=== PATIENT | female | born 1980 | race Caucasian/White ===

== ENCOUNTER 2016-10-06 18:12 | Emergency (ER) | payer BC ==
[2016-10-06] MEDS ORDERED: Aspirin Low Dose CHEW TAB* 81 MG PO ONE (20:05)
[2016-10-06 20:56] LABS: Hematocrit 42 % (35-47); Hemoglobin 14.2 g/dl (12.0-16.0); Mean Corpuscular HGB Conc 34 g/dl (31-36); Mean Corpuscular Hemoglobin 30 pg (27-31); Mean Corpuscular Volume 90 fL (80-97); Mean Platelet Volume 9 um3 (7.4-10.4); Red Blood Count 4.72 10^6/ul (4.0-5.4); Red Cell Distribution Width 13 % (10.5-15); White Blood Count 7.5 10^3/ul (3.5-10.8)
--- NOTE | 2016-10-06 21:04 | RAD ---
Indication: Chest pain and shortness of breath walking upstairs. Comparison: None. Technique: Upright AP 2030 hours Report: Accounting for superimposed soft tissues with large body habitus the lungs and pleural spaces are clear. Negative for pneumothorax. The heart, pulmonary vasculature, and mediastinal contours are unremarkable. Unremarkable osseous structures and soft tissue contours. IMPRESSION: No evidence for acute intrathoracic disease.
[2016-10-06 21:12] LABS: ALT 19 U/L (7-52); AST 19 U/L (13-39); Alkaline Phosphatase 41 U/L (34-104); Anion Gap 7 mmol/L (2-11); BUN/Creatinine Ratio 17.6 (8-20); Blood Urea Nitrogen 12 mg/dL (6-24); CO2 Carbon Dioxide 26 mmol/L (22-32); Calcium 9.3 mg/dL (8.6-10.3); Chloride 103 mmol/L (101-111); EGFR African American 126.6 (>60); EGFR Non-African American 98.5 (>60); Globulin 3.4 g/dL (2-4); Glucose 84 mg/dL (70-100); Magnesium 2.1 mg/dL (1.9-2.7); Potassium 3.7 mmol/L (3.5-5.0); Sodium 136 mmol/L (133-145); Total Protein 7.4 g/dL (6.4-8.9)
[2016-10-06] MEDS ORDERED: Ketorolac INJ* 30 MG/ML 1 ML VIAL IV PUSH ONE (21:16)
[2016-10-06 21:35] LABS: TSH (Thyroid Stimulating Horm) 3.58 mcIU/mL (0.34-5.60)
[2016-10-06 21:44] VITALS: BP 119/70
--- NOTE | 2016-10-06 23:02 | ED ---
Aj Mckeon Matthew, scribed for Tavo Gallagher MD on 10/06/16 at 2021 . HPI Chest Pain - HPI Summary HPI Summary: A 36 y/o female presents to the ED with intermittent, mid sternal chest pain since May, which was worse than usual last night and partially improved by morning. The pain was rated 4/10 in severity. Currently, she continues to have mild chest pain. Yesterday, the patient was at her [employer]PERATOR in [place] and they noted an elevated BP. The chest pain improves with rest and deep breaths and worsens with fatigue. Associated symptoms include intermittent leg cramps, which radiates to the toes. She denies calf pain. She was scheduled to see her PCP on 10/09/16; however, they prompted her to present to the ED today. The patient has a Hx of anemia, which has been under control since July. She also has been having SOB, which has been related to her anemia in the past. - History of Current Complaint Chief Complaint: EDChestPainROMI Time Seen by Provider: 10/06/16 20:04 Hx Obtained From: Patient Onset/Duration: Started Days Ago, Atraumatic, Still Present Timing: Intermittent Initial Severity: Moderate Current Severity: Moderate Pain Intensity: 4 Pain Scale Used: 0-10 Numeric Chest Pain Location: Mid Sternal Chest Pain Radiates: No Aggravating Factor(s): Other: - fatigue Alleviating Factor(s): Rest, Other: - deep breaths Associated Signs and Symptoms: Positive: Chest Pain, Other: - intermitetent leg cramps that radiate to the toes. Negative: Calf Pain/Swelling - Allergy/Home Medications Allergies/Adverse Reactions: Allergies Allergy/AdvReac Type Severity Reaction Status Date / Time Codeine Allergy Severe GI Upset Verified 05/25/16 09:53 PMH/Surg Hx/FS Hx/Imm Hx Endocrine/Hematology History: Reports: Hx Anemia History: Reports: Other Problems/Disorders - heavy menses which is controlled tranexamic acid Infectious Disease History: No Infectious Disease History: Denies: Traveled Outside the [place] in Last 30 Days - Family History Known Family History: Positive: Cardiac Disease, Hypertension, Diabetes Negative: Other - negative CA hx in immediate family - Social History Occupation: Employed Full-time - Teacher Alcohol Use: Rare Hx Substance Use: No Substance Use Type: Reports: None Hx Tobacco Use: No Smoking Status (MU): Never Smoked Tobacco Review of Systems Constitutional: Negative Eyes: Negative ENT: Negative Positive: Chest Pain Positive: Shortness Of Breath - Occasional, which has been related to her anemia in the past Gastrointestinal: Negative Genitourinary: Negative Musculoskeletal: Other - intermittent leg cramping that radiates to the toes Neurological: Negative Psychological: Normal All Other Systems Reviewed And Are Negative: Yes Physical Exam Vital Signs On Initial Exam: Initial Vitals Temp Pulse Resp BP Pulse Ox 99.0 F 93 16 139/70 100 10/06/16 18:22 10/06/16 18:22 10/06/16 18:22 10/06/16 18:22 10/06/16 18:22 Diagnostics - Vital Signs Vital Signs Temp Pulse Resp BP Pulse Ox 10/06/16 18:22 99.0 F 93 16 139/70 100 - Laboratory Lab Results: Lab Results 10/06/16 10/06/16 10/06/16 Range/Units 20:42 20:42 20:42 WBC 7.5 (3.5-10.8) 10^3/ul RBC 4.72 (4.0-5.4) 10^6/ul Hgb 14.2 (12.0-16.0) g/dl Hct 42 (35-47) % MCV 90 (80-97) fL MCH 30 (27-31) pg MCHC 34 (31-36) g/dl RDW 13 (10.5-15) % Plt Count 211 (150-450) 10^3/ul MPV 9 (7.4-10.4) um3 Neut % (Auto) 59.3 (38-83) % Lymph % (Auto) 31.5 (25-47) % [place] % (Auto) 7.4 (1-9) % Eos % (Auto) 1.0 (0-6) % Baso % (Auto) 0.8 (0-2) % Absolute Neuts (auto) 4.4 (1.5-7.7) 10^3/ul Absolute Lymphs (auto) 2.4 (1.0-4.8) 10^3/ul Absolute Monos (auto) 0.6 (0-0.8) 10^3/ul Absolute Eos (auto) 0.1 (0-0.6) 10^3/ul Absolute Basos (auto) 0.1 (0-0.2) 10^3/ul Absolute Nucleated RBC 0.01 10^3/ul Nucleated RBC % 0.1 D-Dimer, Quantitative (Less Than 230) ng/mL Sodium 136 (133-145) mmol/L Potassium 3.7 (3.5-5.0) mmol/L Chloride 103 (101-111) mmol/L Carbon Dioxide 26 (22-32) mmol/L Anion Gap 7 (2-11) mmol/L BUN 12 (6-24) mg/dL Creatinine 0.68 (0.51-0.95) mg/dL Est GFR ( Amer) 126.6 (>60) Est GFR (Non-Af Amer) 98.5 (>60) BUN/Creatinine Ratio 17.6 (8-20) Glucose 84 (70-100) mg/dL Lactic Acid 1.0 (0.5-2.0) mmol/L Calcium 9.3 (8.6-10.3) mg/dL Magnesium 2.1 (1.9-2.7) mg/dL Total Bilirubin 0.40 (0.2-1.0) mg/dL AST 19 (13-39) U/L ALT 19 (7-52) U/L Alkaline Phosphatase 41 (34-104) U/L CK-MB (CK-2) 1.1 (0.6-6.3) ng/mL Troponin I 0.00 (<0.04) ng/mL Total Protein 7.4 (6.4-8.9) g/dL Albumin 4.0 (3.2-5.2) g/dL Globulin 3.4 (2-4) g/dL Albumin/Globulin Ratio 1.2 (1-3) TSH 3.58 (0.34-5.60) mcIU/mL Beta HCG, Quant < 0.60 mIU/mL 10/06/16 Range/Units 20:42 WBC (3.5-10.8) 10^3/ul RBC (4.0-5.4) 10^6/ul Hgb (12.0-16.0) g/dl Hct (35-47) % MCV (80-97) fL MCH (27-31) pg MCHC (31-36) g/dl RDW (10.5-15) % Plt Count (150-450) 10^3/ul MPV (7.4-10.4) um3 Neut % (Auto) (38-83) % Lymph % (Auto) (25-47) % [place] % (Auto) (1-9) % Eos % (Auto) (0-6) % Baso % (Auto) (0-2) % Absolute Neuts (auto) (1.5-7.7) 10^3/ul Absolute Lymphs (auto) (1.0-4.8) 10^3/ul Absolute Monos (auto) (0-0.8) 10^3/ul Absolute Eos (auto) (0-0.6) 10^3/ul Absolute Basos (auto) (0-0.2) 10^3/ul Absolute Nucleated RBC 10^3/ul Nucleated RBC % D-Dimer, Quantitative < 200 (Less Than 230) ng/mL Sodium (133-145) mmol/L Potassium (3.5-5.0) mmol/L Chloride (101-111) mmol/L Carbon Dioxide (22-32) mmol/L Anion Gap (2-11) mmol/L BUN (6-24) mg/dL Creatinine (0.51-0.95) mg/dL Est GFR ( Amer) (>60) Est GFR (Non-Af Amer) (>60) BUN/Creatinine Ratio (8-20) Glucose (70-100) mg/dL Lactic Acid (0.5-2.0) mmol/L Calcium (8.6-10.3) mg/dL Magnesium (1.9-2.7) mg/dL Total Bilirubin (0.2-1.0) mg/dL AST (13-39) U/L ALT (7-52) U/L Alkaline Phosphatase (34-104) U/L CK-MB (CK-2) (0.6-6.3) ng/mL Troponin I (<0.04) ng/mL Total Protein (6.4-8.9) g/dL Albumin (3.2-5.2) g/dL Globulin (2-4) g/dL Albumin/Globulin Ratio (1-3) TSH (0.34-5.60) mcIU/mL Beta HCG, Quant mIU/mL Result Diagrams: 10/06/16 20:42 10/06/16 20:42 Lab Statement: Any lab studies that have been ordered have been reviewed, and results considered in the medical decision making process. - Radiology CXR Xray Interpretation: No Acute Changes - IMPRESSION: No evidence for acute intrathoracic disease. Radiology Interpretation Completed By: Radiologist - EKG 18:16 Cardiac Rate: NL - 89 bpm EKG Rhythm: Sinus Rhythm EKG Interpretation: No ST elevation Chest Pain Course/Dx - Course Assessment/Plan: A 36 y/o female presents to the ED with a CC of chest pain. The patient has been having this chest pain since May intermittently. She denies SOB, palpitations, nausea, and vomiting. Test results WNL. Troponin 0.00. D-Dimer less than 200. In the ED course, the patient was given Toradol and the symptoms alleviated. She will be discharged home with follow-up from her PCP. She is hemodynamically stable and A&Ox3. Patient reports that all symptoms have resolved. Patient has been observed in the ER for approximately 3 hours. Because the patient has no significant comorbidities and no family history of cardiovascular disease the patient will be discharged home with follow up of PMD. I discussed all the findings and test results with the patient. Patient was instructed to return to the emergency room immediately if any of the symptoms return or worsens. Patient understands and agrees. Plan of care was discussed with the patient and patient understands and agrees. All questions were answered at patient satisfaction. There were no further complaints or concerns. PE before discharge: CVS: S1 and S2 present. No murmurs appreciated. Abdominal exam before discharge: Soft, non-tender. No signs of distention. No rebound no guarding, and no masses palpated. Bowel sounds are normal. Patient is alert and oriented x 3. Patient is hemodynamically stable. - Chest Pain Differential Diagnosis/HQI/PQRI: Angina, Chest Wall, GI Disease, Pulmonary Embolism - Diagnoses Provider Diagnoses: Chest pain Discharge - Discharge Plan Condition: Stable Disposition: HOME Patient Education Materials: Chest Pain (ED) Referrals: Maria G Vallejo MD [Primary Care Provider] - 2 Days Additional Instructions: Please follow-up with your primary care physician in two days for further management. The documentation as recorded by the Aj estrada Matthew accurately reflects the service I personally performed and the decisions made by me, Tavo Gallagher MD.
== END 2016-10-06 21:53 | disposition home or self-care (01) ==
LOC: ED 18:12
DX: R07.9 Chest pain, unspecified (principal); R06.02 Shortness of breath
CPT/HCPCS: 36415; 71010; 80053; 82553; 83605; 83735; 84443; 84484; 84702; 85025; 85379; 93005; 99283; A9270-GY

== ENCOUNTER 2018-10-20 16:33 | Observation (INO) | payer BC ==
[2018-10-20] MEDS ORDERED: Diazepam TAB(*) 5 MG PO ONE (16:52)
[2018-10-20] MEDS ORDERED: Ketorolac TAB * 10 MG TAB PO ONE (16:52)
[2018-10-20] MEDS ORDERED: HYDROmorphone INJ* 2 MG/ML CARPUJECT SYRINGE IM ONE ×2 (18:46→20:31)
[2018-10-20] MEDS ORDERED: Ondansetron ODT TAB* 4 MG PO ONE (18:49)
[2018-10-20] MEDS ORDERED: HYDROmorphone INJ1* 1 MG/ML SYRINGE SUBCUT ONE ×2 (19:00→22:00)
--- NOTE | 2018-10-20 19:30 | ED ---
Back Pain - HPI Summary HPI Summary: Patient complains of sudden onset left lower back pain after helping her child take a shower. States history of same once 12 years ago. Denies IV drug use, radiation of pain into her bilateral legs, incontinence, urinary retention, abdominal pain, change in urine, change in BM, fever. Patient took a Percocet 5 /325 and ibuprofen 600 and 11 AM without any relief. Medical history is none. - History of Current Complaint Chief Complaint: EDBackInjuryPain Stated Complaint: BACK PAIN Time Seen by Provider: 10/20/18 16:46 Hx Obtained From: Patient Onset/Duration: Sudden Onset Onset/Duration: Started Hours Ago Timing: Constant Severity Initially: Moderate Severity Currently: Moderate Pain Intensity: 5 Pain Scale Used: 0-10 Numeric Character: Sharp Aggravating Symptom(s): Movement Alleviating Symptom(s): Rest, Position Associated Signs And Symptoms: Positive: Negative - Allergies/Home Medications Allergies/Adverse Reactions: Allergies Allergy/AdvReac Type Severity Reaction Status Date / Time codeine Allergy GI Upset Verified 10/20/18 16:48 Home Medications: Home Medications Ibuprofen [Advil] 400 - 600 mg PO Q6H PRN 10/20/18 [History Confirmed 10/20/18] oxyCODONE/Acetam5/325MG PREPAK [Percocet 5/325 TAB*] 1 tab PO Q6H PRN 10/20/18 [ History Confirmed 10/20/18] PMH/Surg Hx/FS Hx/Imm Hx Endocrine/Hematology History: Reports: Hx Anemia Cardiovascular History: Denies: Hx Cardiac Arrest History: Reports: Other Problems/Disorders - heavy menses which is controlled tranexamic acid Sensory History: Reports: Hx Eye Prosthesis EENT History: Reports: Hx Deafness Neurological History: Reports: Hx Developmental Delay Psychiatric History: Reports: Hx Autism Infectious Disease History: No Infectious Disease History: Denies: Traveled Outside the [place] in Last 30 Days - Family History Known Family History: Positive: Cardiac Disease, Hypertension, Diabetes Negative: Other - negative CA hx in immediate family - Social History Alcohol Use: Occasionally Hx Substance Use: No Substance Use Type: Reports: None Hx Tobacco Use: No Smoking Status (MU): Never Smoked Tobacco Review of Systems Constitutional: Negative Eyes: Negative ENT: Negative Cardiovascular: Negative Respiratory: Negative Gastrointestinal: Negative Genitourinary: Negative Musculoskeletal: Other Skin: Negative Neurological: Negative Psychological: Normal All Other Systems Reviewed And Are Negative: Yes Physical Exam - Summary Physical Exam Summary: No ecchymosis, erythema, swelling, deformity, masses noted to back. Tenderness to palpation along paraspinal muscles of the L-spine on left side. No tenderness to palpation along the spine itself. Patient moves bilateral lower extremities. PMS intact distally. Abdominal exam unremarkable. Triage Information Reviewed: Yes Vital Signs On Initial Exam: Initial Vitals Temp Pulse Resp BP Pulse Ox 97.7 F 86 17 117/70 98 10/20/18 16:44 10/20/18 16:44 10/20/18 16:44 10/20/18 16:44 10/20/18 16:44 Vital Signs Reviewed: Yes Appearance: Positive: Well-Appearing Skin: Positive: Warm Head/Face: Positive: Normal Head/Face Inspection Eyes: Positive: Normal Neck: Positive: Supple Respiratory/Lung Sounds: Positive: Clear to Auscultation Cardiovascular: Positive: Normal Abdomen Description: Positive: Nontender Musculoskeletal: Positive: Normal Neurological: Positive: Normal Psychiatric: Positive: Normal AVPU Assessment: Alert - Fabiano Coma Scale Best Eye Response: 4 - Spontaneous Best Motor Response: 6 - Obeys Commands Best Verbal Response: 5 - Oriented Coma Scale Total: 15 Diagnostics - Vital Signs Vital Signs Temp Pulse Resp BP Pulse Ox 10/20/18 19:08 17 10/20/18 17:21 22 10/20/18 16:44 97.7 F 86 17 117/70 98 - Laboratory Result Diagrams: 10/20/18 23:39 10/20/18 23:39 Lab Statement: Any lab studies that have been ordered have been reviewed, and results considered in the medical decision making process. Back Pain Course/Dx - Course Course Of Treatment: Patient complains of sudden onset left lower back pain after helping her child take a shower. States history of same once 12 years ago. Denies IV drug use, radiation of pain into her bilateral legs, incontinence, urinary retention, abdominal pain, change in urine, change in BM, fever. Patient took a Percocet 5/325 and ibuprofen 600 and 11 AM without any relief. Medical history is none. Physical exam:No ecchymosis, erythema, swelling, deformity, masses noted to back. Tenderness to palpation along paraspinal muscles of the L-spine on left side. No tenderness to palpation along the spine itself. Patient moves bilateral lower extremities. PMS intact distally. Abdominal exam unremarkable. Vital signs within normal limits. Patient's symptoms improved moderately with Valium 5 mg and Toradol 10 mg by mouth, the patient could not move from bed without yelling in pain. Patient also received Dilaudid 1 mg subcutaneous x 2. The patient stated symptoms improved with Dilaudid patient screamed in pain every time there was an attempt to get up from the bed. Will be admitted to hospitalist for observation. - Diagnoses Provider Diagnoses: Muscle spasm Discharge - Sign-Out/Discharge Documenting (check all that apply): Patient Departure - Discharge Plan Condition: Stable Disposition: HOME - Billing Disposition and Condition Condition: STABLE Disposition: Home
[2018-10-20] MEDS ORDERED: HYDROmorphone INJ* 1 MG/ML CARPUJECT SYRINGE SUBCUT ONE (20:33)
[2018-10-20] MEDS ORDERED: HYDROmorphone INJ1* 1 MG/ML SYRINGE IM ONE (22:00)
--- NOTE | 2018-10-20 23:48 | ADMNOTE ---
Subjective Date of Service: 10/20/18 Interval History: 38 year old Female with no significant past medical history who presents to the emergency room because of back pain. Today morning, she started to have back spasm when she was giving a bath to her children. The back spasm resolved, shortly thereafter she took a shower, and then experienced 10/10 back spasm at the left side. The pain was so severe that she laid on the ground. She tried to get up, but was unable to get up X 6 hours. Then she called 911 and was brought to the ER. She does not have any urinary or rectal incontinence, no fever, no trauma, no heavy lifting or shoveling of the snow. In the ER was given pain medications, plan was to send her home, but patient is unable to move due to pain, and then the hospitalist service was called. Family History: Unchanged from Admission - Mother: Rheumatoid arthritis, back issues, Hypertension, Hyperlipidemia. 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, is a teacher, No smoking, occasional alcohol use Past Medical History: Unchanged from Admission - No chronic medical problems, had 2 and uterine ablation Review of Systems - Review of Systems Constitutional Symptoms: Negative: Weight Loss, Fever, Unexplained Falls Dermatology: Negative: Rash, Skin Lesions HEENT: Negative: Change in Hearing, Tinnitus, Sinus Problem Eyes: Negative: Change in Vision, Double Vision, Eye Pain Thyroid: Negative: Cold Intolerance, Heat Intolerance Pulmonary: Negative: Cough, Sputum, Respiratory Distress, Shortness of Breath Cardiology: Negative: Chest Pain, Shortness of Breath, Palpitations Gastroenterology: Negative: Abdominal Pain, Nausea, Vomiting, Constipation Genital - Urinary: Negative: Dysuria, Polyuria Musculoskeletal: Positive: Low Back Pain Endocrinology: Positive: Normal Neurology: Negative: Headache, Change in Vision Psychiatry: Negative: Depression, Anxiety, Depressed Mood Objective Vital Signs - 8 hr 10/20/18 10/20/18 10/20/18 16:44 17:21 19:08 Temperature 97.7 F Pulse Rate 86 Respiratory 17 22 17 Rate Blood Pressure 117/70 (mmHg) O2 Sat by Pulse 98 Oximetry 10/20/18 21:23 Temperature Pulse Rate Respiratory 16 Rate Blood Pressure (mmHg) O2 Sat by Pulse Oximetry Oxygen Devices in Use Now: None Appearance: Young female, lying in bed, tearful. not in distress Eyes: PERRLA - No nystagmus Ears/Nose/Mouth/Throat: - - oral mucosa is dry. Respiratory: Clear to Auscultation Cardiovascular: NL Sounds; No Murmurs; No JVD, RRR Extremities: No Edema, - - Having left paraspinal tenderness, able to lift her legs off the floor, sensation at the legs/feet intact. Skin: No Rash or Ulcers Neurological: Alert and Oriented x 3 Result Diagrams: 10/20/18 23:39 Assess/Plan/Problems-Billing Assessment: 38 year old Female presents with back pain. - Patient Problems (1) Back pain Current Visit: Yes Status: Acute Code(s): M54.9 - DORSALGIA, UNSPECIFIED SNOMED Code(s): 673186168 Comment: Left paraspinal tenderness w/ back pain: likely muscle spasm, will start PRN flexeril. apply heating pack. no incontinence, sensation and movement of lower extremities intact. Was on the ground for several hours, CK was ordered- results pending. (2) DVT prophylaxis Current Visit: Yes Status: Acute Code(s): KPH2479 - SNOMED Code(s): 778753837 Comment: SCD Medications/Allergies Medications: Home Medications Medication Instructions Recorded Confirmed Type Diazepam TAB(*) [Valium TAB(*)] 5 mg PO TID PRN 3 Days #76 tab MDD 10/20/18 Rx 3 tabs Ibuprofen [Advil] 400 - 600 mg PO Q6H PRN 10/20/18 10/20/18 History oxyCODONE/Acetam5/325MG PREPAK 1 tab PO Q6H PRN 10/20/18 10/20/18 History [Percocet 5/325 TAB*] Allergies/Adverse Reactions: Allergies Allergy/AdvReac Type Severity Reaction Status Date / Time codeine Allergy GI Upset Verified 10/20/18 16:48
[2018-10-20 23:49] LABS: ABS Basophils 0 10^3/ul (0-0.2); ABS Eosinophils 0 10^3/ul (0-0.6); ABS Lymphocytes 2.2 10^3/ul (1.0-4.8); ABS Monocytes 0.5 10^3/ul (0-0.8); ABS Neutrophils 3.4 10^3/ul (1.5-7.7); ABS Nucleated RBC 0 10^3/ul; Eosinophil % 0.6 %; Hematocrit 45 % (35-47); Hemoglobin 15.3 g/dl (12.0-16.0); Lymphocyte % 35.3 %; Mean Corpuscular HGB Conc 34 g/dl (31-36); Mean Corpuscular Hemoglobin 31 pg (27-31); Mean Corpuscular Volume 92 fL (80-97); Mean Platelet Volume 9.8 fL (7.4-10.4); Nucleated Red Blood Cells % 0.1; Platelet Count 161 10^3/ul (150-450); Red Blood Count 4.96 10^6/ul (4.00-5.40); Red Cell Distribution Width 13 % (10.5-15); White Blood Count 6.2 10^3/ul (3.5-10.8)
[2018-10-20] MEDS ORDERED: Acetaminophen TAB* 325 MG PO PRN (23:51)
[2018-10-20] MEDS ORDERED: Ondansetron INJ* 2 MG/ML VIAL IV PRN (23:51)
[2018-10-21 00:04] LABS: Anion Gap 9 mmol/L (2-11); BUN/Creatinine Ratio 18.8 (8-20); Blood Urea Nitrogen 12 mg/dL (6-24); CO2 Carbon Dioxide 23 mmol/L (22-32); Calcium 9.3 mg/dL (8.6-10.3); Chloride 105 mmol/L (101-111); Creatine Kinase 88 U/L (10-223); EGFR Non-African American 104.4 (>60); Glucose 93 mg/dL (70-100); Potassium 3.3 mmol/L (3.5-5.0); Sodium 137 mmol/L (135-145)
[2018-10-21] MEDS: Cyclobenzaprine TAB* 10 MG PO PRN ×2 (00:17→17:35)
[2018-10-21 00:20] LABS: HCG Pregnancy < 0.60 mIU/mL
[2018-10-21] MEDS ORDERED: Potassium Chlor TAB* 20 MEQ TAB.ER PO ONE (01:27)
[2018-10-21 01:58] LABS: Urine Appearance Clear; Urine Color Yellow
[2018-10-21 01:59] LABS: Urine Ketones Negative (Negative); Urine Protein 1+(30 mg/dL) (Negative); Urine Urobilinogen Negative (Negative)
[2018-10-21 02:00] LABS: Urine Blood Negative (Negative); Urine Nitrite Negative (Negative)
[2018-10-21 02:01] LABS: Urine Bilirubin Negative (Negative); Urine Glucose Negative (Negative)
[2018-10-21 02:03] LABS: Urine Bacteria 1+ (Absent); Urine Red Blood Cell Trace(0-2/hpf) (Absent); Urine White Blood Cell 1+(6-10/hpf) (Absent)
[2018-10-21] MEDS: NS 0.9% 1000 ML* 1,000 ML IV SCH ×2 (02:30→14:09)
[2018-10-21] MEDS: oxyCODONE/Acetamin 5/325 MG* TAB PO PRN ×2 (02:30→08:16)
--- NOTE | 2018-10-21 03:08 | PN ---
Hospitalist Progress Note Date of Service: 10/21/18 CT shows left sided non-obstructing kidney stone will start flomax continue IV fluid. Patient was having urinary retention, straight cath was done. there after CT abd /plevix and ct lumbar and thoracic spine were ordered/.
[2018-10-21] MEDS: Tamsulosin CAP* 0.4 MG PO SCH (08:16)
[2018-10-21] MEDS: HYDROmorphone INJ1* 1 MG/ML SYRINGE IV SLOW PU PRN ×3 (09:30→19:55)
--- NOTE | 2018-10-21 14:31 | PN ---
Subjective Date of Service: 10/21/18 Interval History: Patient has 4/10 Lt sided back pain at rest, not radiating. Has 8/10 pain w/ movement. Yesterday pain was 10/10, could not breath. Aware of kidney stone, never had this prior. No injury to back. Family History: Unchanged from Admission - Mother: Rheumatoid arthritis, back issues, Hypertension, Hyperlipidemia. 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 , is a teacher, 2 sons Past Medical History: Unchanged from Admission - No chronic medical problems, had 2 and uterine ablation Objective Active Medications: Acetaminophen (Tylenol Tab*) 650 mg PO Q6H PRN PRN Reason: PAIN Cyclobenzaprine HCl (Flexeril Tab*) 5 mg PO TID PRN PRN Reason: Back spasm Last Admin: 10/21/18 00:17 Dose: 5 mg Hydromorphone HCl (Dilaudid Inj1s*) 1 mg IV SLOW PU Q3H PRN PRN Reason: PAIN Last Admin: 10/21/18 14:06 Dose: 1 mg Sodium Chloride (Ns 0.9% 1000 Ml*) 1,000 mls @ 100 mls/hr IV PER RATE [facility] Last Admin: 10/21/18 14:09 Dose: 100 mls/hr Ondansetron HCl (Zofran Inj*) 4 mg IV Q6H PRN PRN Reason: NAUSEA Oxycodone/Acetaminophen (Percocet 5/325 Tab*) 1 tab PO Q6H PRN PRN Reason: PAIN Last Admin: 10/21/18 08:16 Dose: 1 tab Tamsulosin HCl (Flomax Cap*) 0.4 mg PO DAILY [facility] Last Admin: 10/21/18 08:16 Dose: 0.4 mg Vital Signs - 8 hr 10/21/18 10/21/18 10/21/18 07:21 08:15 08:16 Temperature 36.8 C Pulse Rate 79 Respiratory 17 16 16 Rate Blood Pressure 109/55 (mmHg) O2 Sat by Pulse 98 Oximetry 10/21/18 10/21/18 10/21/18 09:30 10:35 11:05 Temperature 37.0 C Pulse Rate 74 Respiratory 16 14 16 Rate Blood Pressure 96/46 (mmHg) O2 Sat by Pulse 97 Oximetry 10/21/18 14:06 Temperature Pulse Rate Respiratory 16 Rate Blood Pressure (mmHg) O2 Sat by Pulse Oximetry Oxygen Devices in Use Now: None Appearance: tearful Eyes: No Scleral Icterus Ears/Nose/Mouth/Throat: Clear Oropharnyx Neck: No Thyroid Enlargement, Masses Respiratory: Symmetrical Chest Expansion and Respiratory Effort, Clear to Auscultation Cardiovascular: NL Sounds; No Murmurs; No JVD Abdominal: NL Sounds; No Tenderness; No Distention Lymphatic: No Cervical Adenopathy Neurological: - - motor 5/5 LE, negative SLR Lines/Tubes/Other Access: Clean, Dry and Intact Peripheral IV Nutrition: Taking PO's Result Diagrams: 10/20/18 23:39 10/20/18 23:39 Diagnostic Imaging: MRI spine LS: spondylosis, no disc herniation or nerve compression Assess/Plan/Problems-Billing Assessment: 38 year old Female presents with intractable back pain. - Patient Problems (1) Back pain Current Visit: Yes Status: Acute Code(s): M54.9 - DORSALGIA, UNSPECIFIED SNOMED Code(s): 875697510 Comment: - pain control improved, PT to see - No worrisome neuro signs, no incontinence, sensation and movement of lower extremities intact. (2) Nephrolithiasis Current Visit: Yes Status: Acute Priority: Low Code(s): N20.0 - CALCULUS OF KIDNEY SNOMED Code(s): 05649956 Comment: - Patient advised renal stone not in ureter not causing this degree of pain - advised hydration, citrus products. Status and Disposition: likely discharge tomorrow
[2018-10-22] MEDS: NS 0.9% 1000 ML* 1,000 ML IV SCH ×2 (00:24→08:53)
[2018-10-22] MEDS: oxyCODONE/Acetamin 5/325 MG* TAB PO PRN ×3 (03:53→17:26)
[2018-10-22 05:50] LABS: BUN/Creatinine Ratio 16.7 (8-20); Calcium 8.6 mg/dL (8.6-10.3); EGFR Non-African American 112.5 (>60); Potassium 3.8 mmol/L (3.5-5.0)
[2018-10-22] MEDS: Cyclobenzaprine TAB* 10 MG PO PRN (08:51)
[2018-10-22] MEDS: Tamsulosin CAP* 0.4 MG PO SCH (08:58)
[2018-10-22] MEDS ORDERED: Docusate CAP* 100 MG PO PRN (11:52)
[2018-10-22] MEDS ORDERED: Cyclobenzaprine TAB* 10 MG PO PRN (11:52)
[2018-10-22] MEDS: Gabapentin CAP(*) 100 MG PO SCH ×2 (13:04→17:25)
[2018-10-22 17:46] VITALS: BP 110/51
--- NOTE | 2018-10-22 22:13 | DS ---
CC: Dr. Maria G Vallejo, Family Medicine * DISCHARGE SUMMARY: DATE OF ADMISSION: 10/20/18 DATE OF DISCHARGE: 10/22/18 PRIMARY DIAGNOSIS: Left-sided musculoskeletal low back pain, possible radicular irritation. SECONDARY DIAGNOSIS: Nephrolithiasis with kidney stones seen in the collecting system of the left kidney not obstructing the ureter. MEDICATIONS ON DISCHARGE: 1. Acetaminophen 650 mg p.o. q.6 hours p.r.n. pain. 2. Cyclobenzaprine 10 mg p.o. t.i.d. p.r.n. spasm. 3. Colace 100 mg p.o. b.i.d. 4. Gabapentin 100 mg p.o. 4 times daily for 3 days and then increase to 200 mg p.o. 4 times daily. 5. Oxycodone/acetaminophen 5/325, 1 tab p.o. q.6 hours p.r.n. pain. 6. Ibuprofen 600 mg p.o. t.i.d. with food. HOSPITAL COURSE: Ms. Barroso is an otherwise healthy 38-year-old woman who was admitted with intractable back pain. At first, when a kidney stone was seen on CT, there was a concern that her pain was due to nephrolithiasis. However, this is a nonobstructing kidney stone, which can cause some pain but not to this degree. The patient was lying on the floor with 10/10 pain, could not move initially. She was admitted to the hospital for pain control and further workup. Thoracic spine CT on 10/21/18 showed multilevel thoracic spondylopathy with no foraminal narrowing or canal stenosis. The lumbosacral spine CT also showed bilateral sacroiliitis. No other serious findings. The MRI of the lumbar spine shows multilevel spondylosis and no central canal stenosis or foraminal stenosis. The patient was treated with IV opiates and muscle relaxants. She was seen by Physical Therapy and she was able to walk with some recurring intermittent severe discomfort. She improved enough to be able to ambulate to the bathroom without assistance. She was eating well. She has not had a bowel movement during this hospitalization and she was started on Colace due to her opiate use. Due to the radicular nature of the pain spreading into her left flank area, the patient was started on gabapentin on the day of discharge, which she tolerated well but at a low dose. This should be titrated up as an outpatient. Tests pending upon discharge: We have added on a HLA-B27 test to the blood we have on vial here. The patient has multilevel spondylosis at age 38, may have ankylosing spondylitis. This should be followed as an outpatient. DISPOSITION: To home with her and children. DIET: Should be as tolerated. 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 The patient is to see Dr. Vallejo within 1 week for followup. [id number]/[facility] #: [id number] [facility]
== END 2018-10-22 17:50 | disposition home or self-care (01) ==
LOC: ED 16:33 → SSU 23:48
PROVIDERS: ADMIT Internal Medicine; ATTEND Internal Medicine
DX: N20.0 Calculus of kidney (principal); M54.5 Low back pain; M54.9 Dorsalgia, unspecified; M46.1 Sacroiliitis, not elsewhere classified; M62.838 Other muscle spasm
CPT/HCPCS: 36415; 72128; 72131; 72148; 74176; 80048; 81003; 81015; 82550; 84702; 85025; 85379; 86812; 87086; 96372; 96374; 99284; A9270-GY; G0378; J1170; J2405

== ENCOUNTER 2018-10-23 19:59 | Emergency (ER) | payer BC ==
[2018-10-23 20:40] VITALS: BP 132/69
--- NOTE | 2018-10-23 20:41 | UC ---
Complaint Female HPI - HPI Summary HPI Summary: 38 yo female presents with burning during urination that began earlier today. She tells me that she was discharged from the hospital yesterday after being admitted for 2 days for back spasms and intractable pain. At one point she had urinary retention and required a urinary catheter. Earlier today she developed burning with urination and frequency. She is still having pain, but is much better than when she was admitted. Denies fever or hematuria. - History Of Current Complaint Chief Complaint: UCGU Stated Complaint: BURNING URINATION Time Seen by Provider: 10/23/18 20:36 Hx Obtained From: Patient Hx Last Menstrual Period: [id number] Onset/Duration: Sudden Onset Timing: Constant Severity Initially: Moderate Severity Currently: Moderate Pain Intensity: 4 Pain Scale Used: 0-10 Numeric - Allergies/Home Medications Allergies/Adverse Reactions: Allergies Allergy/AdvReac Type Severity Reaction Status Date / Time codeine Allergy GI Upset Verified 10/23/18 20:40 Home Medications: Home Medications Diazepam TAB(*) [Valium TAB(*)] 5 mg PO TID PRN 10/23/18 [History Confirmed ] PMH/Surg Hx/FS Hx/Imm Hx - Additional Past Medical History Additional PMH: None - Surgical History Surgical History: Yes Surgery Procedure, Year, and Place: TUBAL LIGATION. 2 C-sections. ablation. WISDOM TEETH - Family History Known Family History: Positive: Cardiac Disease, Hypertension, Diabetes Negative: Other - negative CA hx in immediate family - Social History Lives: With Family Alcohol Use: Rare Substance Use Type: None Smoking Status (MU): Never Smoked Tobacco - Immunization History Most Recent Influenza Vaccination: july 2018 Most Recent Pneumonia Vaccination: n/a Review of Systems All Other Systems Reviewed And Are Negative: Yes Constitutional: Positive: Negative Skin: Positive: Negative Respiratory: Positive: Negative Cardiovascular: Positive: Negative Genitourinary: Positive: Dysuria, Urgency Neurological: Positive: Negative Psychological: Positive: Negative Physical Exam - Summary Physical Exam Summary: GENERAL: NAD. WDWN. No pain distress. SKIN: No rashes, sores, lesions, or open wounds. NECK: Supple. Nontender. No lymphadenopathy. CHEST: CTAB. No r/r/w. No accessory muscle use. Breathing comfortably and in no distress. CV: RRR. Without m/r/g. Pulses intact. Cap refill <2seconds ABDOMEN: Soft. NTTP. No distention or guarding. No CVA tenderness. Bowel sounds present NEURO: Alert. PSYCH: Age appropriate behavior. Triage Information Reviewed: Yes Vital Signs: Initial Vital Signs Temp 99.0 F 10/23/18 20:33 Pulse 90 10/23/18 20:33 Resp 16 10/23/18 20:33 BP 132/69 10/23/18 20:33 Pulse Ox 99 10/23/18 20:33 Laboratory Tests 10/23/18 20:58 POC Urine Color Yellow POC Urine Clarity Cloudy POC Urine pH 6.0 POC Ur Specif Minerva 1.020 POC Urine Protein Negative POC Ur Glucose (UA) Negative POC Urine Ketones Negative POC Urine Blood 2+ A POC Urine Nitrite Negative POC Urine Bilirubin Negative POC Urine Urobilinogen 0.2 POC U Leukocyte Esteras 2+ A Vital Signs Reviewed: Yes Complaint Female Dx - Course Course Of Treatment: UA with sign of infection. Given her recent hospitalization and cath - will treat with Cipro. Keep f/u on sunday with PCP for a recheck. - Differential Dx/Diagnosis Provider Diagnosis: UTI (urinary tract infection) Discharge - Sign-Out/Discharge Documenting (check all that apply): Patient Departure All imaging exams completed and their final reports reviewed: No - Discharge Plan Condition: Stable Disposition: HOME Prescriptions: Ciprofloxacin TAB* [Cipro 500 MG TAB*] 500 mg PO BID #10 tab Patient Education Materials: Urinary Tract Infection in Women (DC) Referrals: Maria G Vallejo MD [Primary Care Provider] - Additional Instructions: If you develop a fever, shortness of breath, chest pain, new or worsening symptoms - please call your PCP or go to the ED. Please keep your follow up with Dr. Vallejo for sunday for a recheck of your symptoms - Billing Disposition and Condition Condition: STABLE Disposition: Home - Attestation Statements Provider Attestation: Per institutional requirements, I have reviewed the chart, however, I was not consulted specifically or made aware of this patient by the midlevel provider. I did not personally evaluate, interact with , or disposition this patient.
[2018-10-23] MEDS ORDERED: Dexamethasone TAB* 4 MG PO ONE (21:05)
[2018-10-23] MEDS ORDERED: Albuterol HFA INHALER* 8 gm MDI INH ONE (21:05)
[2018-10-23] MEDS ORDERED: Ciprofloxacin TAB* 500 MG PO ONE (21:17)
--- NOTE | 2018-10-24 20:01 | ED ---
Progress - Progress Note Progress Note: No x-rays ordered on October 23, 2018 therefore there are no discrepancies Course/Dx - Course Course Of Treatment: UA with sign of infection. Given her recent hospitalization and cath - will treat with Cipro. Keep f/u on sunday with PCP for a recheck. - Diagnoses Provider Diagnoses: UTI (urinary tract infection) Discharge - Sign-Out/Discharge Documenting (check all that apply): Patient Departure All imaging exams completed and their final reports reviewed: No Studies - Discharge Plan Condition: Stable Disposition: HOME Prescriptions: Ciprofloxacin TAB* [Cipro 500 MG TAB*] 500 mg PO BID #10 tab Patient Education Materials: Urinary Tract Infection in Women (DC) Referrals: Maria G Vallejo MD [Primary Care Provider] - Additional Instructions: If you develop a fever, shortness of breath, chest pain, new or worsening symptoms - please call your PCP or go to the ED. Please keep your follow up with Dr. Vallejo for sunday for a recheck of your symptoms - Billing Disposition and Condition Condition: STABLE Disposition: Home
== END 2018-10-23 21:37 | disposition home or self-care (01) ==
LOC: UCEAST 19:59
DX: N39.0 Urinary tract infection, site not specified (principal); Z88.5 Allergy status to narcotic agent
CPT/HCPCS: 81003; 87077; 87086; 87186; 99212; A9270-GY; G0463

== ENCOUNTER 2019-06-11 13:06 | Emergency (ER) | payer BC ==
[2019-06-11 13:22] VITALS: BP 128/77
--- NOTE | 2019-06-11 18:11 | UC ---
Hand/Wrist HPI - HPI Summary HPI Summary: SUDDEN ONSET YESTERDAY OF LEFT INDEX FINGER SWELLING AND PAIN. DENIES ANY INJURY. - History Of Current Complaint Chief Complaint: UCUpperExtremity Stated Complaint: SWOLLEN FINGER Time Seen by Provider: 06/11/19 15:44 Hx Obtained From: Patient Hx Last Menstrual Period: 05/21/19 Onset/Duration: Sudden Onset, Lasting Days, Still Present Severity Initially: Moderate Severity Currently: Moderate Pain Intensity: 8 Pain Scale Used: 0-10 Numeric Character Of Pain: Sharp Aggravating Factor(s): Movement Alleviating Factor(s): Rest Associated Signs And Symptoms: Positive: Swelling, Redness Related History: Dominant Hand Right - Allergies/Home Medications Allergies/Adverse Reactions: Allergies Allergy/AdvReac Type Severity Reaction Status Date / Time codeine Allergy GI Upset Verified 06/11/19 13:23 PMH/Surg Hx/FS Hx/Imm Hx GI/ History: Kidney Stones - Surgical History Surgical History: Yes Surgery Procedure, Year, and Place: TUBAL LIGATION. 2 C-sections. ablation. WISDOM TEETH - Family History Known Family History: Positive: Cardiac Disease, Hypertension, Diabetes Negative: Other - negative CA hx in immediate family - Social History Alcohol Use: Rare Substance Use Type: None Smoking Status (MU): Never Smoked Tobacco - Immunization History Most Recent Influenza Vaccination: july 2018 Most Recent Pneumonia Vaccination: n/a Review of Systems All Other Systems Reviewed And Are Negative: Yes Constitutional: Positive: Negative Skin: Positive: Other - ERYTHEMA Respiratory: Positive: Negative Cardiovascular: Positive: Negative Gastrointestinal: Positive: Negative Musculoskeletal: Positive: Arthralgia, Decreased ROM, Edema Physical Exam Triage Information Reviewed: Yes Appearance: Well-Appearing, No Pain Distress, Well-Nourished Vital Signs: Initial Vital Signs Temp 98 F 06/11/19 13:20 Pulse 81 06/11/19 13:20 Resp 18 06/11/19 13:20 BP 128/77 06/11/19 13:20 Pulse Ox 99 06/11/19 13:20 Vital Signs Reviewed: Yes Eyes: Positive: Conjunctiva Clear ENT: Positive: Hearing grossly normal Neck: Positive: Supple Respiratory: Positive: No respiratory distress, No accessory muscle use Cardiovascular: Positive: Pulses Normal Abdomen Description: Positive: Soft Musculoskeletal: Positive: ROM Limited @ - LEFT INDEX FINGER, Edema @ - LEFT INDEX FINGER, Other: - TTP LEFT INDEX FINGER PIP JOINT Neurological: Positive: Alert Psychological: Positive: Age Appropriate Behavior Skin: Positive: Other - ERYTHEMA LEFT INDEX FINGER Diagnostics - Radiology LEFT INDEX FINGER XRAYS Radiology Interpretation Completed By: Radiologist Summary of Radiographic Findings: SOFT TISSUE SWELLING AND CALCIFIC DEPOSIT IS NOTED. Hand/Wrist Course/Dx - Course Course Of Treatment: LEFT INDEX FINGER X-RAY SHOWS CALCIFIC DEPOSIT AT THE PIP JOINT. THIS LIKELY EXPLAINS THE PATIENT'S ACUTE PAIN. FINGER SPLINT APPLIED BY RN. PRESCRIBED TOPICAL VOLTAREN GEL AND PREDNISONE TO HELP WITH PAIN AND INFLAMMATION. PRESCRIPTION FOR IBUPROFEN ALSO PROVIDED FOR PATIENT TO USE IF VOLTAREN GEL IS PROHIBITIVELY EXPENSIVE. FOLLOW-UP WITH ORTHOPEDICS IF NOT IMPROVING OVER THE NEXT 1-2 WEEKS. - Differential Dx/Diagnosis Provider Diagnosis: Calcification of left hand joint Discharge ED - Sign-Out/Discharge Documenting (check all that apply): Patient Departure All imaging exams completed and their final reports reviewed: Yes - Discharge Plan Condition: Stable Disposition: HOME Prescriptions: Diclofenac 1% GEL (NF) [Voltaren 1% GEL (NF)] 1 applic TOPICAL QID PRN #1 tube PRN Reason: Pain - Moderate Ibuprofen TAB* [Motrin TAB* 600 MG] 1 tab PO Q6H PRN #30 tab PRN Reason: Pain predniSONE TAB* [Deltasone 20 MG TAB*] 40 mg PO DAILY #6 tab Patient Education Materials: Arthralgia (ED) Referrals: Maria G Vallejo MD [Primary Care Provider] - If Needed Pratibha Beyer MD [Medical Doctor] - 2 Weeks Additional Instructions: CALCIUM DEPOSIT SEEN ON LEFT INDEX FINGER X-RAY TODAY. THIS MAY BE CONTRIBUTING TO YOUR PAIN AND SWELLING. WEAR THE FINGER SPLINT AT NIGHT AND DURING THE DAY ABLE. IBUPROFEN AND PREDNISONE FOR PAIN AND INFLAMMATION. TOPICAL VOLTAREN GEL MAY BE MORE EFFECTIVE THAN SYSTEMIC IBUPROFEN. REST, ICE, ELEVATE. FOLLOW-UP WITH ORTHOPEDICS IF SYMPTOMS ARE NOT IMPROVING OVER THE NEXT COUPLE OF WEEKS. - Billing Disposition and Condition Condition: STABLE Disposition: Home
== END 2019-06-11 18:31 | disposition home or self-care (01) ==
LOC: UCEAST 13:06
DX: M25.842 Other specified joint disorders, left hand (principal); Z88.5 Allergy status to narcotic agent
CPT/HCPCS: 73140; 99212; G0463

== ENCOUNTER 2019-07-04 08:46 | Day surgery (SDC) | payer BC ==
--- NOTE | 2019-06-27 10:37 | HP ---
AMENDED REPORT NOW INCLUDES DESIGNATED COSIGNER PREOPERATIVE HISTORY AND PHYSICAL: DATE OF SURGERY/ADMISSION: 07/04/19 - OR EAST DATE OF OFFICE VISIT/ENCOUNTER: 06/23/19. ATTENDING SURGEON: Pratibha Beyer MD.* (DICTATED BY AMY PRO) PROCEDURE: Mass excision, left index finger. 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 It has been present for 2 weeks. It is very painful. She denies any known injury. Initially, she had a lot of swelling and throbbing. She has been taking ibuprofen and has been on some steroids in the past and the swelling has improved some, but the lump remains and is still very, very sore. She cannot make a fist. She splints her fingers at times and that is helpful. This is her dominant hand. She would like to have the mass removed surgically and has consented to proceed with surgery. PAST MEDICAL HISTORY: 1. History of back spasms. 2. Kidney stones. 3. History of anemia. PAST SURGICAL HISTORY: 1. Cope teeth extraction. 2. x2. 3. Tubal ligation. 4. Uterine ablation. CURRENT MEDICATIONS: The patient denies taking any medications at this time. ALLERGIES: CODEINE causes nausea and vomiting. FAMILY MEDICAL HISTORY: Diabetes, heart disease, hypertension, stroke, cancer, rheumatoid arthritis. SOCIAL HISTORY: The patient is a teacher in the [employer]. She is also attending school in [place]. She denies tobacco use and recreational drug use. She drinks alcohol on rare occasion. REVIEW OF SYSTEMS: Negative for general, cephalic, cardiovascular, respiratory , GI, , other musculoskeletal, integumentary, endocrine, neurologic, and hematologic symptoms. Infections Disease: Negative for MRSA, hepatitis C, HIV. PHYSICAL EXAMINATION GENERAL: Well-developed, well-nourished 39-year-old female, in no acute distress. VITAL SIGNS: Height 5 feet 3 inches, weight 161 pounds. Pulse rate 78, blood pressure 118/72. HEENT: Normocephalic, atraumatic. Pupils are equal, round and reactive to light and accommodation. Extraocular movements are intact. Throat is clear. NECK: Supple. No palpable lymph nodes. PULMONARY: Lungs are clear to auscultation bilaterally. No wheezes, rales or rhonchi. CARDIOVASCULAR: Regular rate and rhythm. S1, S2. No murmurs, rubs or gallops. No edema. ABDOMEN: Positive bowel sounds. Soft, nontender. NEUROLOGIC: Alert and oriented x3. Cranial nerves II through XII are intact. Sensation is intact to light touch. MUSCULOSKELETAL: On exam of her left hand, she has swelling of her index finger and a very tender mass at the ulnar aspect of the PIP joint. She cannot flex the PIP joint past 30 or 40 degrees without significant pain. She has full extension and she can extend against resistance. She has good motion in her other fingers as well as her wrist. Neurovascular function is intact. SKIN: Intact. DIAGNOSTIC STUDIES/LAB DATA: X-rays AP and lateral and oblique of the left index finger show a calcific density corresponding to the area of tenderness. ASSESSMENT: Left index finger mass which on x-ray is calcified. PLAN: The patient is scheduled to undergo a mass excision left index finger with Dr. Beyer on 07/04/19. She will return to the office 10 days postoperative for followup and suture removal. A prescription for tramadol was e-scribed to the patient's pharmacy for postoperative pain management. AMY PRO [id number]/[facility] #: [id number] [facility]
[~2019-07-04 08:46] MED LIST: Acetaminophen TAB* 325 MG PO PRN; Buffered Lidocaine 1% SYRIN* 1 ML/SYRINGE INTRADERM ONE; Dexamethasone TAB* 4 MG ONE; Dexamethasone TAB* 4 MG PO ONE; DiMENhydriNATE IV* 50 MG/ML VIAL IV PUSH PRN; Famotidine IV* 10 MG/ML 2 ML (20 mg) IV ONE; Famotidine IV* 10 MG/ML 2 ML (20 mg) ONE; Lactated Ringers 1000 ML Bag* 1,000 ML IV SCH; Naloxone* 0.4 MG/ML 1 ML VIAL IV PRN; Ondansetron ODT TAB* 4 MG ONE; Ondansetron ODT TAB* 4 MG PO ONE; PROCHLORPERAZINE INJ 5 MG/ML 2 ML VIAL IV PRN; fentaNYL* 50 MCG/ML 2 ML VIAL (100 MCG VIAL) IV PRN; oxyCODONE TAB* 5 MG TAB PO PRN
[2019-07-04] MEDS ORDERED: Midazolam* 1 MG/ML 5 ML VIAL (5 MG) ONE (09:51)
[2019-07-04] MEDS ORDERED: fentaNYL* 50 MCG/ML 2 ML VIAL (100 MCG VIAL) ONE (09:51)
[2019-07-04] MEDS ORDERED: KETAMINE HCL* 50 MG/ML 10 ML VIAL ONE (10:07)
[2019-07-04] MEDS ORDERED: Lidocaine 1% INJ* 10 MG/ML 30 ML SDV ONE (10:08)
[2019-07-04] MEDS ORDERED: Ketorolac INJ* 30 MG/ML 1 ML VIAL ONE (10:28)
[2019-07-04] MEDS ORDERED: Propofol* 10 MG/ML 20 ML BTL ONE (10:28)
[2019-07-04] MEDS ORDERED: Lidocaine 2% PF * 5 ML VIAL ONE (10:28)
[2019-07-04 11:55] VITALS: BP 109/74
--- NOTE | 2019-07-04 14:00 | OP ---
CC: Dr. Beyer. OPERATIVE REPORT: DATE OF OPERATION: 07/04/19 DATE OF : 82 SURGEON: Pratibha Beyer MD. CUSTOMER DATA TECHNICIAN: AMY Hall. ANESTHESIA: Local MAC. PRE-OP DIAGNOSIS: Left index finger mass. POST-OP DIAGNOSIS: Left index finger mass. OPERATIVE PROCEDURE: Removal of left index finger mass. ESTIMATED BLOOD LOSS: Zero. TOURNIQUET TIME: Approximately 15 minutes. INDICATIONS FOR PROCEDURE: Kim is a 39-year-old female, who has a painful mass on the ulnar aspect of her left index finger PIP joint. X-ray showed the calcification just adjacent to the joint. She presents for mass removal. DESCRIPTION OF PROCEDURE: The patient was brought to the operating room, was given a sedation anesth etic and a local infiltration of 10 cc of 1% plain lidocaine as a digital block to the left index fin gail. A Tourni-Cot was placed on the finger and then a longitudinal incision was made centered over t he mass, dissected bluntly to the subcutaneous tissue down to the collateral ligament, which I could see had some calcific tissue and this was removed. There was an underlying small osteophyte as well and this was removed with a rongeur. These were sent for pathology. The wound was copiously irrigat ed with saline. The lateral band tissue was repaired with 4-0 Vicryl suture, and the skin edges were reapproximated with 4-0 nylon suture. The wound was dressed with Xeroform, 4 x 4s, Kerlix, and Katina n. The patient tolerated the procedure well and was brought to the recovery room in good condition. [id number]/[facility] #: [id number]
== END 2019-07-04 11:45 | disposition home or self-care (01) ==
LOC: OREAST 08:46
PROVIDERS: ATTEND Orthopaedic Surgery
DX: L94.2 Calcinosis cutis (principal); M25.742 Osteophyte, left hand; Z87.442 Personal history of urinary calculi
CPT/HCPCS: 88305; A9270-GY; J1885; J2250; J2704; J3010; J8540

== ENCOUNTER 2022-11-02 14:40 | Observation (INO) ==
[2022-11-02 15:14] LABS: ABS Lymphocytes 1.9 10^3/ul (1.0-4.8); ABS Monocytes 0.6 10^3/ul (0-0.8); ABS Neutrophils 5.1 10^3/ul (1.5-7.7); Eosinophil % 0.4 %; Hematocrit 45 % (35-47); Hemoglobin 15.1 g/dL (12.0-16.0); Lymphocyte % 24.9 %; Mean Corpuscular HGB Conc 34 g/dL (31-36); Mean Corpuscular Hemoglobin 32 pg (27-31); Mean Corpuscular Volume 93 fL (80-97); Mean Platelet Volume 8.5 fL (7.4-10.4); Platelet Count 238 10^3/uL (150-450); Red Blood Count 4.81 10^6 /uL (3.70-4.87); Red Cell Distribution Width 12 % (10-15); White Blood Count 7.6 10^3/uL (3.5-10.8)
[2022-11-02 15:32] LABS: High Sens Troponin Baseline < 3 pg/mL (<15)
[2022-11-02 16:02] LABS: ALT 16 U/L (7-52); AST 17 U/L (13-39); Albumin 4.9 g/dL (3.2-5.2); Albumin/Globulin Ratio 1.4 (1-3); Alkaline Phosphatase 60 U/L (35-149); Anion Gap 7 mmol/L (2-11); Blood Urea Nitrogen 12 mg/dL (6-24); CO2 Carbon Dioxide 33 mmol/L (22-32); Calcium 9.9 mg/dL (8.6-10.3); Chloride 100 mmol/L (101-111); Globulin 3.4 g/dL (2-4); Glucose 81 mg/dL (70-100); Potassium 3.8 mmol/L (3.5-5.0); Sodium 140 mmol/L (135-145); Total Protein 8.3 g/dL (6.4-8.9); eGFR CKD-EPI 111.4 (>60)
[2022-11-02 16:53] LABS: High Sensitivity Troponin 1 Hr < 3 pg/mL (<15)
[2022-11-02] MEDS ORDERED: Iohexol 350 (CONTRAST) 500 ML MDV IV ONE (17:03)
[2022-11-02] MEDS: Acetaminophen IV 1 GM/100ML 1,000 MG/100 ML BAG IV PRN (19:33)
[2022-11-02] MEDS: Enoxaparin 80 MG/0.8 ML SYR SUBCUT SCH (19:33)
[2022-11-03] MEDS: Acetaminophen IV 1 GM/100ML 1,000 MG/100 ML BAG IV PRN (04:18)
[2022-11-03 06:07] LABS: ABS Eosinophils 0.1 10^3/ul (0-0.6); ABS Lymphocytes 1.5 10^3/ul (1.0-4.8); ABS Monocytes 0.7 10^3/ul (0-0.8); ABS Neutrophils 5.5 10^3/ul (1.5-7.7); Eosinophil % 0.7 %; Hematocrit 40 % (35-47); Hemoglobin 13.5 g/dL (12.0-16.0); Lymphocyte % 19.4 %; Mean Corpuscular HGB Conc 34 g/dL (31-36); Mean Corpuscular Hemoglobin 31 pg (27-31); Mean Corpuscular Volume 92 fL (80-97); Mean Platelet Volume 8.9 fL (7.4-10.4); Platelet Count 199 10^3/uL (150-450); Red Blood Count 4.36 10^6 /uL (3.70-4.87); Red Cell Distribution Width 12 % (10-15); White Blood Count 7.9 10^3/uL (3.5-10.8)
[2022-11-03 06:24] LABS: Calcium 8.8 mg/dL (8.6-10.3); Creatinine, Serum 0.66 mg/dL (0.51-0.95); Magnesium 1.8 mg/dL (1.9-2.7); eGFR CKD-EPI 112.9 (>60)
[2022-11-03] MEDS ORDERED: Magnesium Sulfate IV 1GM/100ML 1 GM/100 ML BAG IV ONE (07:59)
[2022-11-03 08:00] VITALS: BP 128/72
[2022-11-03] MEDS: Enoxaparin 80 MG/0.8 ML SYR SUBCUT SCH (09:49)
[2022-11-06 11:58] LABS: DRVVT Screen Ratio 1.02 ratio (<1.20); LAC APTT 26 sec (25 - 37)
== END 2022-11-03 15:10 | disposition home or self-care (01) ==
LOC: ED 14:40 → EDHOLD 14:40 → MEDTELE 20:09
PROVIDERS: ADMIT Hospitalist; ATTEND Hospitalist